=== PATIENT | female | born 1965 | race Caucasian/White ===

== ENCOUNTER 2020-12-04 09:15 | Emergency (ER) | payer BC, SELFPAY ==
--- NOTE | ~2020-12-04 | XR_ITS ---
EXAMINATION: XR hand RT min 3V EXAM DATE: 12/04/2020 10:20 INDICATION: Limited range of motion. Fell 3 days ago with persistent right hand pain. Initial encoun ter. TECHNIQUE: Right hand frontal, lateral and oblique projections obtained and reviewed. There is no pr ior study for comparison. FINDINGS: Right metacarpal bones are unremarkable. There are no acute fractures or dislocations iden tified. There is no subcutaneous gas. The soft tissue is unremarkable. There are no radiopaque fo reign bodies. IMPRESSION: 1. Right hand exam without acute osseous findings. Reviewed, dictated and finalized at location A.
--- NOTE | ~2020-12-04 | XR_ITS ---
EXAMINATION: XR forearm RT 2V INDICATION: Right forearm pain, initial encounter TECHNIQUE: Two views of the right forearm are obtained. COMPARISON: None available FINDINGS: There is a small elbow joint effusion. There appears to be a nondisplaced fracture of the r adial neck. No additional acute osseous findings are evident. The soft tissues are normal. IMPRESSION: 1. Likely nondisplaced radial neck fracture. Reviewed, dictated and finalized at location B.
--- NOTE | ~2020-12-04 | XR_ITS ---
EXAMINATION: XR elbow RT min 3V INDICATION: Right elbow pain, initial encounter TECHNIQUE: Four views of the right elbow are obtained. COMPARISON: None available FINDINGS: There is an elbow joint effusion. There is a subtle nondisplaced fracture of the radial nec k. Bone alignment is normal. No additional acute osseous findings are evident. IMPRESSION: 1. Subtle nondisplaced radial neck fracture. Reviewed, dictated and finalized at location B.
[2020-12-04 09:28] VITALS: BP 125/70; PULSE 71; RESP 20; TEMP 36.3; O2SAT 100
--- NOTE | 2020-12-04 09:55 | ED.UPPEXIN ---
HPI - Extremity Injury (Upper) General Chief Complaint: Extremity Injury, Upper Stated Complaint: right arm injury Time Seen by Provider: 12/04/20 09:50 Source: patient, RN notes reviewed and old records reviewed Mode of arrival: ambulatory Limitations: no limitations History of Present Illness HPI narrative: 55 year old female who presents to [facility] care with complaints of falling on Thursday night while walking home from [facility]. She states that she tripped on sidewalk and put her arms out to break her fall and fell onto concrete. Patient states that she has pain to her right hand and to her forearm with inability to supinate her arm. Patient states that she has used her arm all weekend and pain has increased, she is right hand dominant. MD complaint: injury to: right Onset (ago): day(s) (4 days) Other Extremity Injury: Right: hand and forearm Handedness: right Place: outdoors Severity: severe Severity scale (1-10): 7 Treatments prior to arrival: NSAIDS and other (vicodin) Related Data Home Medications Medication Instructions Recorded Confirmed diazepam 2 mg tablet 2 mg PO BID PRN 12/06/20 12/06/20 hydrocodone 7.5 mg-acetaminophen 1 tablet PO BID PRN tablet 12/06/20 12/06/20 325 mg tablet Allergies Allergy/AdvReac Type Severity Reaction Status Date / Time codeine Allergy Intermediate Itching Verified 12/06/20 11:59 Review of Systems Review of Systems: CONSTITUTIONAL: Denies fever, chills, or sweats. EYES: Denies visual changes, redness, or discharge. ENT: Denies rhinorrhea, congestion, sore throat, or otalgia. CARDIOVASCULAR: Denies chest pain, palpitations, or edema. RESPIRATORY: Denies cough or dyspnea. GASTROINTESTINAL: Denies abdominal pain, nausea, vomiting, or diarrhea. GENITOURINARY: Denies dysuria or hematuria. SKIN: Denies rash or itching. MUSCULOSKELETAL: Chronic back pain,right hand and forearm pain, or myalgia. NEUROLOGIC: Denies headache, numbness, or weakness. PSYCHIATRIC: Denies anxiety or depression. All systems reviewed & are unremarkable except as noted in HPI and below PMFSH Past Medical History Medical History Cervical cancer Chronic back pain Surgical History Surgical History H/O: hysterectomy Hx of appendectomy Family History Family History Mother Cancer of thyroid Hypertension Grandparent Heart disease Social History Social History Smoking status: Former smoker Additional smoking assessment comments: quit 18 days ago Alcohol intake: current Alcohol use details: social Substance use type: does not use Gender identity (if verbalized by the patient): Female Comments At time of signature, agree with nursing past medical, surgical, social and family history. There is no relevant family history pertinent to the presenting complaint Exam Narrative: GENERAL: Well-appearing, well-nourished, and in no acute distress. HEAD: Normocephalic, atraumatic. EYES: PERRLA and EOMI. ENT: Nares clear, no rhinorrhea or epistaxis. Mucous membranes moist. NECK: Supple.no lymphadenopathy CHEST: Clear to auscultation. No respiratory distress. HEART: Regular rate and rhythm. No murmur heard. Normal peripheral pulses. ABDOMEN: Soft, nontender, nondistended, normal active bowel sounds. EXTREMITIES: decreased range of motion to right arm unable to supinate No acute edema noted to right forearm, strong right radial and brachial pulses, fingers are warm and pink. SKIN: Warm, dry, no rash. NEURO: No focal deficits. Alert and oriented x3. Course Vital Signs Vital signs: Vital Signs Temperature 36.3 C L 12/04/20 09:28 Pulse Rate 71 12/04/20 09:28 Respiratory Rate 20 12/04/20 09:28 Blood Pressure 125/70 12/04/20 09:28 Pulse Oximetry 100 0
--- NOTE | 2020-12-04 10:39 | ED_ITS ---
HPI - Extremity Injury (Upper) General Chief Complaint: Extremity Injury, Upper Stated Complaint: right arm injury Time Seen by Provider: 12/04/20 09:50 Source: patient, RN notes reviewed and old records reviewed Mode of arrival: ambulatory Limitations: no limitations History of Present Illness Place: outdoors Treatments prior to arrival: NSAIDS and other (vicodin) Related Data Home Medications Medication Instructions Recorded Confirmed No Home Medications 12/04/20 12/04/20 Allergies Allergy/AdvReac Type Severity Reaction Status Date / Time codeine Allergy Intermediate Itching Verified 12/04/20 10:44 [facility] Past Medical History Medical History (Updated 12/04/20 @ 10:08 by Jaclyn Orozco NP) Cervical cancer Chronic back pain Surgical History Surgical History (Updated 12/04/20 @ 10:09 by Jaclyn Orozco NP) H/O: hysterectomy Hx of appendectomy Family History Family History (Updated 12/04/20 @ 10:10 by Jaclyn Orozco NP) Mother Cancer of thyroid Hypertension Grandparent Heart disease Social History Social History (Updated 12/04/20 @ 10:11 by Jaclyn Orozco NP) Smoking status: Former smoker Additional smoking assessment comments: quit 18 days ago Alcohol intake: current Alcohol use details: social Substance use type: does not use Living arrangements: with family Gender identity (if verbalized by the patient): Female Course Vital Signs Vital signs: Vital Signs Temperature 36.3 C L 12/04/20 09:28 Pulse Rate 71 12/04/20 09:28 Respiratory Rate 20 12/04/20 09:28 Blood Pressure 125/70 12/04/20 09:28 Pulse Oximetry 100 12/04/20 09:28 Temperature 36.3 C L 12/04/20 09:28 Pulse Rate 71 12/04/20 09:28 Respiratory Rate 20 12/04/20 09:28 Blood Pressure 125/70 12/04/20 09:28 Pulse Oximetry 100 12/04/20 09:28 Discharge Plan Discharge Patient Disposition: Home, Self-Care Condition: Stable Instructions: Antibiotic Form Additional Instructions: Elastic wrap or orthopedic splint as directed for comfort for the next 5-7 days Tylenol for lesser pain Ibuprofen regularly for the next 2-3 days for the inflammation Use the medication as provided for severe pain--caution each tablet contains 325 mg of Tylenol--the maximum dose of Tylenol is 4000 mg in 24 hours. This medication may cause constipation consider starting a laxative at this time Follow-up with orthopedic surgeon as arranged Follow-up with PCP if further problems or concerns Ice to the area 20-30 minutes 4-6 times a day Elevate above heart Prescriptions: No Action No Home Medications RF: 0 Follow-up/Referrals: Desirae,Calos Matias MD [Primary Care Provider] -
[2020-12-04] MEDS: IBUPROFEN 400 MG TABLET 800 MG PO (10:47)
== END 2020-12-04 11:15 | disposition home or self-care (01) ==
PROVIDERS: Emergency Provider Registered Nurse; PCP Family Medicine
DX: S52.134A Nondisplaced fracture of neck of right radius, initial encounter for closed fracture (principal); W01.0XXA Fall on same level from slipping, tripping and stumbling without subsequent striking against object, initial encounter; Z85.41 Personal history of malignant neoplasm of cervix uteri; Z87.891 Personal history of nicotine dependence
CPT/HCPCS: 29105; 73080; 73090; 73130; 99214; A4565; A9270; G0463

== ENCOUNTER 2022-06-17 13:18 | Emergency (ER) | payer MEDICAID, SELFPAY ==
--- NOTE | ~2022-06-17 | XR_ITS ---
EXAMINATION: XR ankle RT min 3V INDICATION: Lateral foot swelling TECHNIQUE: Four views of the left ankle are obtained. COMPARISON: None available FINDINGS: There is lateral soft tissue swelling of the foot and ankle. Heterotopic ossification is se en at the dorsolateral aspect of the the calcaneus. Bone alignment is normal. IMPRESSION: 1. Findings consistent with acute avulsion injury at the dorsolateral aspect of the calcaneus. Reviewed, dictated and finalized at location L.
[2022-06-17 13:26] VITALS: BP 143/89; PULSE 101; RESP 20; TEMP 37.2; O2SAT 98
--- NOTE | 2022-06-17 13:30 | ED.LOWEXIN ---
HPI - Extremity Injury (Lower) General Chief Complaint: Extremity Injury, Lower Stated Complaint: right foot injury Time Seen by Provider: 06/17/22 14:05 Source: patient and RN notes reviewed Mode of arrival: ambulatory Limitations: no limitations History of Present Illness HPI Narrative: 57-year-old female presents with concern for right ankle and foot injury. Reports on she fell off twisted her ankle. Reports ankle and foot swelling, bruising. Reports bruising on the pedal aspect of her foot. She reports since then she has been elevating it, applying ice, staying off of it, we taking ibuprofen and symptoms have not improved. She reports that it hurts more. MD complaint: ankle injury and foot injury Related Data Home Medications Medication Instructions Recorded Confirmed diazepam 2 mg tablet (Valium) 2 mg PO BID PRN Anxiety 12/06/20 06/17/22 Allergies Allergy/AdvReac Type Severity Reaction Status Date / Time codeine Allergy Intermediate Itching Verified 06/17/22 13:32 Review of Systems Review of Systems: CONSTITUTIONAL: Denies malaise, chills, sweats, or fever. SKIN: Denies rash or itching, open skin, laceration, abrasion, redness, warmth MUSCULOSKELETAL: Reports right ankle and foot pain, bruising, swelling NEUROLOGIC: Denies numbness, weakness All systems reviewed & are unremarkable except as noted in HPI and below PMFSH Past Medical History Medical History (Updated 06/17/22 @ 14:50 by Ana Powers NP) Cervical cancer Chronic back pain Surgical History Surgical History (Updated 01/16/21 @ 13:54 by Annelise Giron MA) H/O: hysterectomy 2004 Hx of appendectomy 1999 Family History Family History (Updated 01/16/21 @ 13:55 by Annelise Giron MA) Mother Cancer of thyroid Hypertension Grandparent Heart disease Unknown History of cancer Breast/Cervical Other History of arthritis Social History Social History (Updated 01/16/21 @ 13:57 by Annelise Giron MA) Smoking status: Former smoker Smoking end date: 11/17/20 Additional smoking assessment comments: quit 18 days ago Alcohol intake: current Drinks per week: 2 Alcohol use details: social Substance use type: does not use Living arrangements: with family Gender identity (if verbalized by the patient): Female Comments At time of signature, agree with nursing past medical, surgical, social and family history. There is no relevant family history pertinent to the presenting complaint Exam Narrative: GENERAL: Well-appearing, well-nourished, and in no acute distress. HEAD: Normocephalic, atraumatic. EYES: PERRLA, conjunctivae clear NECK: Supple. CHEST: Speaks in full sentences. No respiratory distress. HEART: Regular rate and rhythm. Normal and equal peripheral pulses. EXTREMITIES: Right ankle, foot, digits have grossly normal sensation, limited range of motion. Mild edema, moderate ecchymosis noted to the dorsal foot, pedal foot. 3/5 strength with ankle flexion and extension. Normal sensation with sensitivity to light touch and pain. General foot and ankle tenderness. No open wounds, no skin tenting, no devitalized tissue or atrophy, no trophic changes, no obvious deformity, alignment normal, nearby joints and structures intact. Distal pulses palpable and equal bilaterally, skin warm, dry, pink. Capillary refill less than 3 seconds. SKIN: Warm, dry, no rash. NEURO: Alert and oriented x3. PSYCH: Normal mood and affect Course Course Emergency Course: Patient is aware of diagnosis, understands and agrees to treatment plan. Anticipatory guidance given. Patient agrees to follow-up as directed and is aware of reasons to seek care at the emergency department. Portions of this record may have been created with voice recognition software Level of Care: Express Care Visit Vital Signs Vital signs: Reviewed. MDM - Extremity Injury (Lower) MDM Narrative Medical decision making narrative: Patients i
[2022-06-17 13:33] VITALS: BP 143/89; PULSE 101; RESP 20; TEMP 37.2; O2SAT 98
== END 2022-06-17 14:57 | disposition home or self-care (01) ==
PROVIDERS: Emergency Provider Nurse Practitioner; PCP Family Medicine
DX: S92.001A Unspecified fracture of right calcaneus, initial encounter for closed fracture (principal); W19.XXXA Unspecified fall, initial encounter; Z85.41 Personal history of malignant neoplasm of cervix uteri; Z87.891 Personal history of nicotine dependence
CPT/HCPCS: 73610; 73630; 99214; G0463

== ENCOUNTER 2023-01-26 09:20 | Emergency (ER) | payer OTHER, SELFPAY ==
--- NOTE | 2023-01-26 09:27 | ED.URI ---
HPI - URI/Sore Throat General Chief Complaint: Upper Respiratory Infection Stated Complaint: headache/no smell/no taste Time Seen by Provider: 01/26/23 10:06 Source: patient and RN notes reviewed Mode of arrival: ambulatory Limitations: no limitations History of Present Illness HPI Narrative: 57-year-old female presents with concern for 3 day history of headache, cough, chills, sinus congestion, loss of taste. Reports taking [id number] medication without relief. MD elicited complaint: cough and nasal congestion Related Data Home Medications Medication Instructions Recorded Confirmed diazepam 2 mg tablet (Valium) 2 mg PO BID PRN Anxiety 12/06/20 06/23/22 naproxen 500 mg tablet (Naprosyn) 500 mg PO BID 06/23/22 06/23/22 tizanidine 2 mg capsule 2 mg PO TID PRN 06/23/22 06/23/22 Allergies Allergy/AdvReac Type Severity Reaction Status Date / Time codeine Allergy Intermediate Itching Verified 06/23/22 09:45 Review of Systems Review of Systems: CONSTITUTIONAL: Reports malaise, chills EYES: Denies visual changes, redness, or discharge. ENT: Reports rhinorrhea, congestion. Denies sinus pain, otalgia and sore throat. CARDIOVASCULAR: Denies chest pain, palpitations, or edema. RESPIRATORY: Reports cough. Denies dyspnea. GASTROINTESTINAL: Denies abdominal pain, nausea, vomiting, diarrhea SKIN: Denies rash or itching. MUSCULOSKELETAL: Reports myalgia. NEUROLOGIC: Reports headache. All systems reviewed & are unremarkable except as noted in HPI and below PMFSH Past Medical History Medical History Cervical cancer Chronic back pain Surgical History Surgical History H/O: hysterectomy 2004 Hx of appendectomy 1999 Family History Family History Mother Cancer of thyroid Hypertension Grandparent Heart disease Unknown History of cancer Breast/Cervical Other History of arthritis Social History Social History Smoking status: Current every day smoker Additional smoking assessment comments: smokes 1 pack overy 3-4 days Alcohol intake: current Drinks per week: 2 Alcohol use details: social Substance use: current Substance use type: marijuana Living arrangements: with family Occupation/Education: occupation 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 There is no relevant family history pertinent to the presenting complaint Exam Narrative: GENERAL: Nontoxic-appearing and in no acute distress. HEAD: Normocephalic EYES: PERRLA, conjunctivae clear ENT: Nares clear, turbinates edematous and erythematous, clear discharge. Mucous membranes moist. TM pearly scott with dull light reflex bilaterally; no tragal tenderness. Oropharynx not erythematous without lesions. Tonsils not enlarged and without exudate, no drooling, no hoarseness, no trismus, uvula midline. NECK: Supple. No lymphadenopathy CHEST: Clear to auscultation, breath sounds equal. No wheezing, rhonchi, rales, or stridor. No respiratory distress, speaks in full sentences. HEART: Regular rate and rhythm. No murmur heard. SKIN: Warm, dry, no rash. NEURO: Alert and oriented x3. PSYCH: Normal mood and affect Course Course Emergency Course: Patient is aware of diagnosis, understands and agrees to treatment plan. Anticipatory guidance given. Patient agrees to follow-up as directed and is aware of reasons to seek care at the emergency department. Portions of this record may have been created with voice recognition software Level of Care: Express Care Visit Vital Signs Vital signs: Vital Signs Temperature 97
[2023-01-26 09:38] VITALS: BP 125/87; PULSE 105; RESP 20; TEMP 36.6; O2SAT 98
== END 2023-01-26 10:23 | disposition home or self-care (01) ==
PROVIDERS: Emergency Provider Nurse Practitioner; PCP Family Medicine
DX: J06.9 Acute upper respiratory infection, unspecified (principal); Z20.822 Contact with and (suspected) exposure to COVID-19; F17.200 Nicotine dependence, unspecified, uncomplicated; F12.90 Cannabis use, unspecified, uncomplicated; Z85.41 Personal history of malignant neoplasm of cervix uteri
CPT/HCPCS: 87081; 87426; 87804; 87880; 99213; C9803; G0463

== ENCOUNTER 2023-04-09 14:28 | Emergency (ER) | payer OTHER, SELFPAY ==
[2023-04-09 14:37] VITALS: BP 145/85; PULSE 85; RESP 18; TEMP 36.7; O2SAT 100
--- NOTE | 2023-04-09 14:53 | ED.DIZZY ---
HPI - Dizziness General Chief Complaint: Dizziness Stated Complaint: lays down gets dizzy Source: patient, RN notes reviewed and old records reviewed Mode of arrival: ambulatory Limitations: no limitations History of Present Illness HPI Narrative: 50-year-old female presents to [facility] with complaint of dizziness for the last few days. Patient states feels like room is spinning. Patient states has caused her to vomit 1 time. Patient states had same thing last year during the winter and was given allergy medications. Patient states call primary care physician was told to come here elicited complaint: dizziness Related Data Home Medications Medication Instructions Recorded Confirmed diazepam 2 mg tablet (Valium) 2 mg PO BID PRN Anxiety 12/06/20 06/23/22 tizanidine 2 mg capsule 2 mg PO TID 06/23/22 06/23/22 albuterol sulfate 90 mcg/actuation inhalation 04/09/23 aerosol inhaler alendronate 70 mg tablet mg PO 04/09/23 meloxicam 15 mg tablet mg 04/09/23 Allergies Allergy/AdvReac Type Severity Reaction Status Date / Time codeine Allergy Intermediate Itching Verified 06/23/22 09:45 Review of Systems Constitutional: Constitutional: Reports no additional constitutional complaints, Denies body ache(s), Denies chills, Denies fatigue, Denies fever(s) and Denies headache(s) Eyes: Eyes: Reports no additional eye complaints and Denies blurry vision ENT: Reports system reviewed and no additional complaints, except as documented, Denies vertigo, Denies dizziness, Denies ear discharge, Denies otalgia, Denies facial pain, Denies headache(s), Denies nasal congestion, Denies nasal discharge, Denies sinus pain, Denies sinus pressure and Denies sore throat Cardiovascular: Cardiovascular: Reports no additional cardiovascular complaints, Denies chest pain, Denies chest pain at rest, Denies rapid heart rate and Denies dyspnea Respiratory: Respiratory: Reports no additional respiratory complaints, Denies chest congestion, Denies cough, Denies pain on inspiration, Denies pain with cough and Denies dyspnea Gastrointestinal: Gastrointestinal: Denies abdominal pain, Denies diarrhea, Reports nausea and Reports vomiting Integumentary/Breasts: Skin/Breast: Denies rash Neurologic: Reports system reviewed and no additional complaints, except as documented, Denies vertigo, Reports dizziness and Denies headache(s) Endocrine: Endocrine: Denies fatigue PMFSH Past Medical History Medical History Cervical cancer Chronic back pain Surgical History Surgical History H/O: hysterectomy 2005 Hx of appendectomy 1999 Family History Family History Mother Cancer of thyroid Hypertension Grandparent Heart disease Unknown History of cancer Breast/Cervical Other History of arthritis Social History Social History Smoking status: Current every day smoker Additional smoking assessment comments: smokes 1 pack overy 3-4 days Alcohol intake: current Drinks per week: 2 Alcohol use details: social Substance use: current Substance use type: marijuana Living arrangements: with family Occupation/Education: occupation 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 There is no relevant family history pertinent to the patient complaint. Exam Const: General: cooperative, healthy appearing, no acute distress and well nourished Nutritional Appearance: well nourished Orientation/consciousness: patient oriented x3 Limitations: no limitations HENMT: Head: normal to inspection and normocephalic
== END 2023-04-09 15:06 | disposition home or self-care (01) ==
PROVIDERS: Emergency Provider Registered Nurse; PCP Family Medicine
DX: R42 Dizziness and giddiness (principal); H65.03 Acute serous otitis media, bilateral; F17.210 Nicotine dependence, cigarettes, uncomplicated; F12.90 Cannabis use, unspecified, uncomplicated; Z85.41 Personal history of malignant neoplasm of cervix uteri
CPT/HCPCS: 99213; G0463

== ENCOUNTER 2024-01-28 09:44 | Emergency (ER) | payer SELFPAY ==
--- NOTE | ~2024-01-28 | XR_ITS ---
EXAMINATION: XR pelvis 1-2V DATE: 01/28/2024 11:23 INDICATION: Chronic left hip pain. TECHNIQUE: An anteroposterior view of the pelvis was obtained. COMPARISON: None. FINDINGS: Alignment is normal. No fracture. The hip joint spaces are normal. There is mild lumbar spo ndylosis. IMPRESSION: 1. Normal hips. Reviewed, dictated and finalized at location B. IMPRESSION: 1. Normal hips.
[2024-01-28 10:07] VITALS: BP 117/65; PULSE 77; RESP 18; TEMP 36.4; O2SAT 100
--- NOTE | 2024-01-28 11:05 | ED.BACK ---
HPI - Back Pain/Injury General Chief Complaint: Back Pain/Injury Stated Complaint: Left Leg Pain/Low Back Paiin Time Seen by Provider: 01/28/24 10:55 Source: patient, RN notes reviewed and old records reviewed Mode of arrival: ambulatory Limitations: no limitations History of Present Illness HPI Narrative: 58 year old female who presents to [facility] with complaints of chronic back pain/ sciatica left side which has flared since Thursday. Patient reports that she has not been able to sleep due to pain, has taken Vicodin, and used ice and heat to left lower back. Patient reports that she can't tolerate standing at work today and had to call of needs work note. Patient reports that pain is left lower back into buttocks has some to left groin area and also down side of leg, denies any tingling or numbness. MD elicited complaint: back pain Pertinent past history: prior back pain Onset (ago): day(s) (4) Pain scale (0-10): 6 Similar Symptoms Previously: Yes Quality: sharp and aching Location: lumbar spine and left lower back Treatments prior to arrival: cold therapy, heat therapy, prescription analgesics and other (muscle relaxers) Related Data Home Medications Medication Instructions Recorded Confirmed diazepam 2 mg tablet (Valium) 2 mg PO BID PRN Anxiety 12/06/20 01/28/24 tizanidine 2 mg capsule 2 mg PO TID 06/23/22 01/28/24 meloxicam 15 mg tablet 15 mg DIRECTED 04/09/23 01/28/24 Allergies Allergy/AdvReac Type Severity Reaction Status Date / Time codeine Allergy Intermediate Itching Verified 06/23/22 09:45 Review of Systems Review of Systems: CONSTITUTIONAL: Denies fever, chills, or sweats. CARDIOVASCULAR: Denies chest pain, palpitations, or edema. RESPIRATORY: Denies cough or dyspnea. GASTROINTESTINAL: Denies abdominal pain, nausea, vomiting, or diarrhea. GENITOURINARY: Denies dysuria or hematuria. SKIN: Denies rash or itching. MUSCULOSKELETAL: Reports left lower back pain into left buttock down side of leg and some pain to left groin,or myalgia. NEUROLOGIC: Denies headache, numbness, or weakness. All systems reviewed & are unremarkable except as noted in HPI and below PMFSH Past Medical History Medical History Arthritis Avulsion fracture of right calcaneus Cervical cancer Chronic back pain Fracture of radial head, right, closed Osteoporosis Surgical History Surgical History H/O: hysterectomy 2005 Hx of appendectomy 1999 Family History Family History Mother Cancer of thyroid Hypertension Grandparent Heart disease Unknown History of cancer Breast/Cervical Other History of arthritis Social History Social History Smoking status: Current every day smoker Additional smoking assessment comments: smokes 1 pack overy 3-4 days Alcohol intake: current Drinks per week: 2 Alcohol use details: social Substance use: current Substance use type: marijuana Living arrangements: with family Occupation/Education: occupation 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 There is no relevant family history pertinent to the presenting complaint Exam Narrative: GENERAL: Well-appearing, well-nourished, and in no acute distress. HEAD: Normocephalic, atraumatic. EYES: PERRLA and EOMI. NECK: Supple. No lymphadenopathy. CHEST: Clear to auscultation. No respiratory distress. SAO2 100% on room air HEART: Regular rate and rhythm. Distal pulses palpable and equal, cap refill <3 seconds ABDOMEN: Soft, nontender, nondistended, normal active bowel sounds, no palpable or pulsatile masses. No CVA tenderness MUSCULOSKELETAL: Normal range of motion and strength in all extremities; 5/5 strength with hip flexion and extension, dorsiflexion and extension, knee flexion and extension, plantar flexion and extension. Normal sensation in dermatomal distributions with sensitivity to light touch and pain. No midline back tenderness to palpation. No paraspinal tenderness. Transfers from lying to sitting to standing.with discomfort to left lower back, denies any saddle paraesthesia no difficulty with bowel or bladder function SKIN: Warm, dry, no rash. No ecchymosis, erythema, open wounds to back. NEURO: No focal deficits. Alert and oriented x3. Reflexes intact. Normal gait increased pain with ambulation reported. PSYCH: Normal mood and affect Course Course Emergency Course: Patient is aware of diagnosis, understands and agrees to treatment plan. Anticipatory guidance given. Patient agrees to follow-up as directed and is aware of reasons to seek care at the emergency department. Portions of this record may have been created with voice recognition software Level of Care: Express Care Visit Vital Signs Vital signs: Vital Signs Temperature 36.4 C L 01/28/24 10:07 Pulse Rate 77 01/28/24 10:07 Respiratory Rate 18 01/28/24 10:07 Blood Pressure 117/65 01/28/24 10:07 Pulse Oximetry 100 01/28/24 10:07 Oxygen Delivery Room Air 01/28/24 10:07 Temperature 36.4 C L 01/28/24 10:07 Pulse Rate 77 01/28/24 10:07 Respiratory Rate 18 01/28/24 10:07 Blood Pressure 117/65 01/28/24 10:07 Pulse Oximetry 100 01/28/24 10:07 Oxygen Delivery Room Air 01/28/24 10:07 Reviewed MDM - Back Pain/Injury MDM Narrative Medical decision making narrative: No risk factors or findings concerning for epidural abscess, diskitis, vertebral osteomyelitis, cord compression, cauda equina, vertebral fracture or bone malignancy, AAA, or pyelonephritis. Patient instructed to consider further imaging and workup through their primary care physician as an outpatient if symptoms persist. Differential Diagnosis Differential diagnosis: Likely lumbar radiculopathy, sciatica, strain of lumbar region and other (exacerbation of chronic back pain) Medical Records Attestation: I reviewed the patient's medical records. Imaging Data Attestation: I personally reviewed and interpreted this imaging study as follows: My impression: normal hips mild lumbar spondylosis Radiologist's impression: [facility] [address] [place] [address] XRay Report Signed Patient: Savanna Morgan : 1965 MR#: [id number] Age: 58 Acct:[id number] Loc: [facility] ADM Date: 01/28/24Attending Dr: Ordering Physician: Jaclyn Orozco APRN Date of Service: 01/28/24 Procedure(s): XR pelvis 1-2V Accession Number(s): [id number] cc: Desirae, Calos Matias MD; Jaclyn Orozco APRN~ EXAMINATION: XR pelvis 1-2V DATE: 01/28/2024 11:23 INDICATION: Chronic left hip pain. TECHNIQUE: An anteroposterior view of the pelvis was obtained. COMPARISON: None. FINDINGS: Alignment is normal. No fracture. The hip joint spaces are normal. There is mild lumbar spondylosis. IMPRESSION: 1. Normal hips. Reviewed, dictated and finalized at location B. Dictated By: Genaro Duvall MD 01/28/24 1125 Signed By: <Electronically signed by Genaro Duvall MD in OV> Critical Care Time Critical Care Time Critical Care Time: No Discharge Plan Discharge Clinical Impression: Low back pain radiating to left leg Patient Disposition: Home, Self-Care Condition: Stable Instructions: Antibiotic Form, Lumbar Radiculopathy (ED), Back Pain (ED) Additional Instructions: Ice and heat to the area for 20-30 minutes Gentle stretching exercises Gentle massage Caution with lifting, bending, stooping, twisting Avoid pushing, pulling take muscle relaxants as directed--caution drowsiness and no driving or alcohol Anti-inflammatory medicine as directed--take with food He may take the muscle relaxant and anti-inflammatory at the same time Pain medicine as directed for severe pain--caution drowsiness-no driving or alcohol. If this medicine is a narcotic, you can become constipated. He may want to start a laxative right away. Follow-up with your PCP if not improving in 5-7 days patient reports she does have some pain medication at home prednisone as prescribed take with food Prescriptions: New prednisone 20 mg tablet 20 mg PO BID Qty: 10 0RF No Action hydrocodone-acetaminophen 5-325 mg tablet 1 tablet PO Q6H PRN (Reason: pain) Qty: 14 0RF naloxone [Narcan] 4 mg/actuation spray,non-aerosol 4 mg intranasal Q2M PRN (Reason: opioid overdose) Qty: 2 0RF Rx Instructions: spray 1 dose into ONE nostril; alternate nostrils w each dose until help arrives meloxicam 15 mg tablet 15 mg DIRECTED diazepam [Valium] 2 mg tablet 2 mg PO BID PRN (Reason: Anxiety) tizanidine 2 mg capsule 2 mg PO TID Follow-up/Referrals: Desirae,Calos Matias MD [Primary Care Provider] - Stand Alone Forms: Work/School Release IP Time of Disposition: 11:40 Quality [place] Coma Scale Eyes: Open Verbal: Oriented and Alert Motor: Follows Commands [place] Coma Total Score: 15
== END 2024-01-28 11:52 | disposition home or self-care (01) ==
PROVIDERS: Emergency Provider Registered Nurse; PCP Family Medicine
DX: M54.50 Low back pain, unspecified (principal); F17.200 Nicotine dependence, unspecified, uncomplicated; F12.90 Cannabis use, unspecified, uncomplicated; M19.90 Unspecified osteoarthritis, unspecified site; M81.0 Age-related osteoporosis without current pathological fracture; Z85.41 Personal history of malignant neoplasm of cervix uteri
CPT/HCPCS: 72170; 99213; G0463